=== PATIENT | male | born 1980 | race Caucasian/White ===

== ENCOUNTER 2020-11-09 18:26 | Inpatient (IN) | payer MEDICAID ==
[~2020-11-09] VITALS: Ht 162.6 cm; Wt 45.4 kg
[2020-11-09] MEDS ORDERED: SODIUM CHLORIDE 0.9% 1,000 ML IV ONE (21:15)
[2020-11-09 21:30] LABS: HEMATOCRIT. 44.5 % (42.0-52.0); HEMOGLOBIN. 14.9 g/dL (14.0-18.0); MEAN CORPUSCULAR VOLUME 95.5 fL (80.0-94.0); MEAN PLATELET VOLUME 9.9 fl (7.4-10.4); PLATELET 209 x1000/uL (130-400); RED BLOOD CELL COUNT 4.66 mill/uL (4.7-6.1)
[2020-11-09 21:35] LABS: CHLORIDE 97 mEq/L (98-107)
[2020-11-09 21:42] LABS: BETA HYDROXYBUTYRATE 9.2 mMol/L (0.0-0.3)
[2020-11-09 22:08] LABS: PLATELET ESTIMATE NORMAL
[2020-11-09 22:13] LABS: BG CARBOXYHEMOGLOBIN 0.6 % (0.5-1.5); BG DEOXYHEMOGLOBIN 3.3 % (0.0-5.0); BG HCO3 ACT 6.7 mmol/L (22.0-26.0); BG METHEMOGLOBIN 0.3 % (0.0-1.5); BG OXYGEN SATURATION 96.7 % (92.0-98.5); BG OXYHEMOGLOBIN 95.8 % (94.0-97.0); BG PCO2 17.5 mmHg (35.0-45.0); BG PH 7.201 (7.350-7.450); BG PO2 94.9 mmHg (75.0-100.0); BG SAMPLE SITE RIGHT BRACHIAL; BG TOTAL HEMOGLOBIN 14.2 g/dL (12.0-18.0); BG VENT MODE ROOM AIR
[2020-11-09] MEDS ORDERED: INSULIN REGULAR (DRIP) 100 UNITS in SODIUM CHLORIDE 0.9% 100 ML IV ONE (22:30)
[2020-11-09 22:55] LABS: PHOSPHORUS 4.2 mg/dL (2.5-4.9)
[2020-11-10] MEDS: SODIUM CHL 0.45% + KCL 20MEQ/L 1,000 ML IV SCH ×2 (00:27→05:15)
[2020-11-10 00:28] LABS: CHLORIDE 108 mEq/L (98-107)
[2020-11-10 03:19] LABS: CHLORIDE 109 mEq/L (98-107)
[2020-11-10 04:50] LABS: CHLORIDE 109 mEq/L (98-107)
[2020-11-10] MEDS ORDERED: ACETAMINOPHEN 325MG TABLET PO PRN (09:45)
[2020-11-10] MEDS ORDERED: ONDANSETRON HCL 4MG/2ML INJ IV PRN (09:45)
[2020-11-10] MEDS: INSULIN GLARGINE UD 100 UNITS/ML SYR SUBCUT SCH (10:09)
[2020-11-10] MEDS: SODIUM CHLORIDE 0.9% 1,000 ML IV SCH ×2 (10:10→23:20)
[2020-11-10] MEDS ORDERED: DEXTROSE 50% WATER 50ML SYRINGE IV PRN ×2 (12:00)
[2020-11-10] MEDS: BLOOD SUGAR DIAGNOSTIC STRIP TEST SCH ×3 (12:40→21:00)
[2020-11-10] MEDS ORDERED: BLOOD SUGAR DIAGNOSTIC STRIP TEST SCH ×2 (12:40)
[2020-11-10] MEDS: INSULIN LISPRO 100 UNITS/ML SUBCUT SCH ×3 (13:10→21:32)
[2020-11-10 15:00] VITALS: BP 111/80
[2020-11-10 16:00] VITALS: BP 111/80
[2020-11-10] MEDS ORDERED: INSU100I28 SQ (16:56)
[2020-11-10] MEDS: GUAIFENESIN-DM 200MG-20MG/10ML UDC PO PRN (18:29)
[2020-11-10 20:00] VITALS: BP 101/72
[2020-11-10 22:13] LABS: BASOPHILS % 0.1 % (0.0-2.0); EOSINOPHILS % 0.2 % (0.0-5.0); HEMATOCRIT. 38.2 % (42.0-52.0); HEMOGLOBIN. 13.4 g/dL (14.0-18.0); LYMPHOCYTES % 9.7 % (20.0-50.0); MEAN CORPUSCULAR HEMOGLOBIN 31.8 pg (28.0-32.0); MEAN PLATELET VOLUME 9.6 fl (7.4-10.4); MONOCYTES % 9.9 % (2.0-8.0); NEUTROPHILS % 80.1 % (40.0-76.0); PLATELET 216 x1000/uL (130-400); RED CELL DISTRIBUTION WIDTH 11.7 % (11.6-14.6)
[2020-11-10 22:16] LABS: CHLORIDE 103 mEq/L (98-107)
[2020-11-11] VITALS (7 sets, daily range): BP systolic 95–125; BP diastolic 60–86
[2020-11-11] MEDS: SODIUM CHLORIDE 0.9% 1,000 ML IV SCH (06:00)
[2020-11-11] MEDS: BLOOD SUGAR DIAGNOSTIC STRIP TEST SCH ×2 (07:57→12:20)
[2020-11-11] MEDS: GUAIFENESIN-DM 200MG-20MG/10ML UDC PO PRN (08:54)
[2020-11-11] MEDS: INSULIN LISPRO 100 UNITS/ML SUBCUT SCH ×2 (08:56→13:03)
[2020-11-11] MEDS: INSULIN GLARGINE UD 100 UNITS/ML SYR SUBCUT SCH (10:27)
[2020-11-11 13:28] LABS: CHLORIDE 106 mEq/L (98-107)
[2020-11-11] MEDS ORDERED: POTASSIUM CHLORIDE 20MEQ TABLET SR PO SCH (14:00)
[2020-11-12] MEDS ORDERED: INSULIN GLARGINE UD 100 UNITS/ML SYR SUBCUT SCH (10:00)
== END 2020-11-11 16:52 | disposition home or self-care (01) | DRG 420 ==
LOC: ER 18:26 → MICUSO 23:46 → EDBEDREQSVC 11-10 00:20 → EDBEDREQ 11-10 00:20 → EDBEDREQTM 11-10 00:20 → 7WST 11-10 09:43 → MICUSO 11-10 09:45 → 7WST 11-10 11:44 → 6WST 11-11 01:20
PROVIDERS: ADMIT Hospitalist; ATTEND Hospitalist
DX: E11.10 Type 2 diabetes mellitus with ketoacidosis without coma (principal); F17.200 Nicotine dependence, unspecified, uncomplicated; Z20.822 Contact with and (suspected) exposure to COVID-19; Z79.899 Other long term (current) drug therapy
CPT/HCPCS: 36415; 36600; 71045; 80048; 80053; 82010; 82375; 82805; 82962; 83036; 83735; 84100; 84484; 85025; 87426; 93005; 99291; J1815; J3480; J7030; J7050; U0003; U0005

== ENCOUNTER 2022-02-19 21:19 | Emergency (ER) | payer MEDICAID ==
[~2022-02-19] VITALS: Ht 175.3 cm; Wt 50.0 kg
[2022-02-19] MEDS ORDERED: ONDANSETRON HCL 4MG/2ML INJ IV STA (23:15)
[2022-02-19] MEDS ORDERED: FAMOTIDINE 20MG/2ML VIAL IV STA (23:15)
[2022-02-19] MEDS ORDERED: SODIUM CHLORIDE 0.9% 1,000 ML IV ONE (23:15)
[2022-02-19 23:49] LABS: BASOPHILS % 0.5 % (0.0-2.0); EOSINOPHILS % 1.3 % (0.0-5.0); HEMATOCRIT. 31.2 % (42.0-52.0); HEMOGLOBIN. 10.8 g/dL (14.0-18.0); LYMPHOCYTES % 20.1 % (20.0-50.0); MEAN CORPUSCULAR HEMOGLOBIN 30.1 pg (28.0-32.0); MEAN CORPUSCULAR VOLUME 87.2 fL (80.0-94.0); MEAN PLATELET VOLUME 7.8 fl (7.4-10.4); MONOCYTES % 8.9 % (2.0-8.0); NEUTROPHILS % 69.2 % (40.0-76.0); PLATELET 460 x1000/uL (130-400); RED BLOOD CELL COUNT 3.58 mill/uL (4.7-6.1); RED CELL DISTRIBUTION WIDTH 13.3 % (11.6-14.6)
[2022-02-20 00:07] LABS: CHLORIDE 97 mEq/L (98-107)
[2022-02-20 00:17] LABS: ETHANOL BLOOD < 10 mg/dL
[2022-02-20 02:06] LABS: *AMPHETAMINES SCREEN URINE NEGATIVE (NEGATIVE); *BARBITURATES SCREEN URINE NEGATIVE (NEGATIVE); *BENZODIAZEPINES SCREEN URINE NEGATIVE (NEGATIVE); *COCAINE SCREEN URINE NEGATIVE (NEGATIVE); CANNABINOID URINE SCREEN NEGATIVE (NEGATIVE); METHADONE URINE SCREEN NEGATIVE (NEGATIVE); OPIATES URINE SCREEN NEGATIVE (NEGATIVE); PHENCYCLIDINE URINE SCREEN NEGATIVE (NEGATIVE)
[2022-02-20 05:08] VITALS: BP 158/91
[2022-02-20] MEDS ORDERED: ONDA4TAB50 MT (05:25)
== END 2022-02-20 06:28 | disposition home or self-care (01) ==
LOC: ER 21:19
DX: R11.2 Nausea with vomiting, unspecified (principal); E11.9 Type 2 diabetes mellitus without complications; I10 Essential (primary) hypertension
CPT/HCPCS: 36415; 70450; 80053; 80305; 80320; 83605; 83690; 85025; 93005; 96374; 96375; 99285; J2405; J3490; J7030; G0480